=== PATIENT | male | born 1950 | race Caucasian/White ===

== ENCOUNTER 2023-12-20 16:33 | Emergency (ER) | payer MEDICARE, OTHER, SELFPAY ==
[2023-12-20 16:40] VITALS: BP 126/85
[2023-12-20 17:19] LABS: % Basophils 1.3 % (0-2); % Eosinophils 5.9 % (0-6); % Immature Granulocytes 0.2 % (0-0.5); % Lymphocytes 22.4 % (20.5-51.1); % Monocytes 9.4 % (1.7-9.3); % Neutrophils 60.8 % (42.2-75.2); Absolute Basophils 0.1 10^3/uL (0-0.2); Absolute Eosinophils 0.3 10^3/uL (0-0.7); Absolute Lymphocytes 1.2 10^3/uL (1.2-3.4); Absolute Monocytes 0.5 10^3/uL (0.1-0.6); Absolute Neutrophils 3.2 10^3/uL (1.4-6.5); Hematocrit 35.8 % (39.0-52.0); Hemoglobin 12.7 g/dL (13.0-18.0); Mean Corp Hgb Conc. 35.5 g/dL (33.0-37.0); Mean Corpuscular Hgb 31.4 pg (27.0-31.0); Mean Corpuscular Volume 88.6 fL (80.0-94.0); Mean Platelet Volume 8.7 fL (7.4-10.4); Nucleated Red Blood Cells % 0 % (-); Platelet Count 213 10^3/uL (130-400); Red Blood Cell Count 4.04 10^6/uL (4.70-6.10); Red Cell Dist. Width 12.1 % (11.5-14.5); White Blood Cell Count 5.2 10^3/uL (4.8-10.8)
[2023-12-20 17:26] LABS: ALT (SGPT) 22 U/L (0-50); AST (SGOT) 34 U/L (17-59); Albumin 4.3 g/dl (3.5-5.0); Alkaline Phosphatase 70 U/L (38-126); Blood Urea Nitrogen 13 mg/dl (9-20); Calcium 9.2 mg/dl (8.4-10.2); Carbon Dioxide 24 mmol/L (22-30); Chloride 98 mmol/L (98-107); Glucose 93 mg/dl (70-99); Potassium 4.1 mmol/L (3.5-5.1); Sodium 133 mmol/L (135-145); Total Bilirubin 1.4 mg/dl (0.2-1.3); Total Protein 7.5 g/dl (6.3-8.2); eGFR > 60.00
[2023-12-20 17:31] LABS: INR 1.14; PT 14.4 Sec (11.4-14.6)
--- NOTE | 2023-12-20 18:33 | ED.GENMED ---
History of Present Illness
General
Chief Complaint: Cough
Source: patient and family (Sister)
Exam Limitations: none
Time Seen by Provider: 12/20/23 17:59
Travel History
Have you had any contact with someone who has COVID-19?: No
Do you have any symptoms of coronavirus? Fever > 100 degrees, chills, cough, shortness of breath, sore throat, loss of taste or smell, muscle aches, or headache?: No
History of Present Illness
History of Present Illness:
This is a 73 year old male that comes in with c/o coughing up blood. Sister states that he was place on Eliquis for the atrial fib about 8 months ago. States that today she went to renew his Plavix and the pharmacy would not refill this as they
said Dr. Saha cancelled this. States that she called the nurse at the [facility] as he was coughing up blood with his mucous from his stoma. States that this has been off and on for the past 1-2 weeks. States that also when he would take his stoma out in
the [place] there would be blood there. States that this is not all the time. State that today he stopped the Plavix as no one told him to stop this before. Denies any fever, chills, chest pain, SOB, abd pain, nausea, vomiting, diarrhea, headache,
dizziness, urinary burning.
Past History
Past History
ED Past Medical History: Arrthythmia (Atrial fib), CAD, Cancer (Throat and vocal cord CA), GERD, HTN, Hypercholesterolemia, GA (X 2) and Other (Herniated disc, Pancreatitis, Glaucoma)
ED Past Surgical History: Cardiac (Stents X 2), Orthopedic (Back surgery, ) and Other (Tracheostomy, esophageal reconstruction, Vocal cord surgery, Laryngectomy, Facial reconstruction with plates, )
Social History
Tobacco: Former smoker
Alcohol: Daily (6 beers)
Personal: Single
Living: with family
Employment: Retired
Review of Systems
Review of Systems
All Other Systems: ROS reviewed and negative except as documented in HPI and ROS
Constitutional: Reports no symptoms; Denies fever or chills
EENT: Reports no symptoms
Respiratory: Reports hemoptysis (on and off)
Cardiac: Reports no symptoms; Denies chest pain
ABD/GI: Reports no symptoms; Denies abdominal pain, nausea, vomiting or diarrhea
: Reports no symptoms; Denies dysuria, frequency or urgency
Musculoskeletal: Reports no symptoms
Skin: Reports no symptoms
Neurological: Reports no symptoms; Denies dizzy or headache
Psychiatric: Reports no symptoms
Phy Exam
General Physical Exam
General Presentation: well appearing and no apparent distress
General age: appears stated age
General Skin: warm and dry
General Habitus: normal
General Mental: alert
General Hydration: appears well hydrated
ENT Exam
ENT Exam: TM's normal, pharynx normal and neck supple
Eye Exam
Eye Exam: EOMI
Cardiovascular Exam
Cardiovascular Exam: regular rate/rhythm
Pulmonary Exam
Pulmonary Exam: lungs clear, no respiratory distress, no rales, chest non tender, no crackles, no rhonchi, no wheezing and no cough
Musculoskeletal Exam
Musculoskeletal Exam: full ROM
Skin Exam
Skin Exam: normal color, warm/dry, no rash and no petechia
Psychiatric Exam
Psychiatric Exam: normal mood/affect
Course
Orders/Labs/Results
Orders:
Orders
12/20/23 16:56
Complete Blood Count/With Diff Urgent
Comprehensive Metabolic Panel Urgent
PT/INR [Prothrombin Time] Urgent
12/20/23 18:18
CR Chest - 2 Views Urgent
Comment: history of Esophageal cancer and Vocal cord CA
Reason For Exam: Coughing up blood
Abnormal Lab Results
12/20/23
16:56
RBC 4.04 L 10^6/uL
(4.70-6.10)
Hgb 12.7 L g/dL
(13.0-18.0)
Hct 35.8 L %
(39.0-52.0)
MCH 31.4 H pg
(27.0-31.0)
Monocytes % 9.4 H %
(1.7-9.3)
Sodium 133 L mmol/L
(135-145)
Total Bilirubin 1.4 H mg/dl
(0.2-1.3)
12/20/23 16:56
12/20/23 16:56
H/H slightly low naranjo compared to prior labs, Sodium slightly low. PT 14.4 with INR 1.14
Vital Signs
Initial and Last Documented VS:
Initial Vital Signs
Temp Pulse Resp BP Pulse Ox
98.2 F 85 16 126/85 98
12/20/23 16:40 12/20/23 16:40 12/20/23 16:40 12/20/23 16:40 12/20/23 16:40
Last Documented Vital Signs
Temp Pulse Resp BP Pulse Ox
98.2 F 85 16 126/85 98
12/20/23 16:40 12/20/23 16:40 12/20/23 16:40 12/20/23 16:40 12/20/23 16:40
MDM/Problems Addressed
Differential Diagnosis Includes:
Over use of Blood thinners,
MDM/Problems Addressed:
This is a 73 year old male that comes in with c/o hemoptasis. Sister states that he was taking Plavix and Eliquis as no one to told him to stop the Plavix when he was started on the Eliquis. States that when he shaves he had had a hard time
stopping the bleeding. Today they told him to stop the Plavix. Patient states that the coughing up of blood is not all the time.
Will get labs and chest X-ray.
Back into see patient and sister. Explained that his chest x-ray is normal. Will have patient follow up with the physician relations specialist but feel that since he has stopped the Plavix his bleeding will stop. Patient to return with increased bleeding or
any other concerns.
Chronic conditions affecting care: Cancer
Acute Exacerbation and/or Progression of Chronic Illness: Cancer
*Radiology
Radiology exam reviewed: radiology read reviewed (Chest-NO acute cardiopulmonary process. )
*Pulse Oximetry
Patient hypoxic: no
*EKG
Interpreted by ED Provider?: NA
Rate: EKG- N/A
*Dictaphone Technician Interpretation
Rate: Dictaphone Technician- N/A
*Critical Care Note
Total Time (30-74mins, 75-104mins- exclusive of procedures): Not Applicable
ED Attending Note
-
Portions of this chart may have been created with voice recognition software.� Occasional wrong word or��sound alike� substitutions may have occurred due to the inherent limitations of voice recognition software.
Discharge Plan
Departure
Patient Disposition: Home (Routine Discharge)
Date of Disposition: 12/20/23
Time of Disposition: 20:04
Patient with high blood pressure during this ER visit?: No
Condition: Good
Covid-19: Not Applicable
Discharge Problem:
Cough with hemoptysis
Instructions: Coughing up blood
Prescriptions:
No Action
multivitamin with folic acid [Tab-A-José Miguel] 1 TABLET tablet
1 tab PO DAILY
pantoprazole 40 MG tablet,delayed release (DR/EC)
40 mg PO DAILY Qty: 90 3RF
aspirin 81 MG tablet,chewable
81 mg PO DAILY Qty: 0 0RF
Rx Instructions:
Please note decreased dose
nitroglycerin 0.4 MG tablet, sublingual
0.4 mg sublingual [id number] PRN (Reason: chest pain) Qty: 30 2RF
atorvastatin 40 MG tablet
40 mg PO QPM Qty: 30 3RF
metoprolol succinate 25 MG tablet extended release 24 hr
25 mg PO DAILY Qty: 30 3RF
lisinopril 2.5 MG tablet
2.5 mg PO DAILY Qty: 30 3RF
ticagrelor [Brilinta] 90 MG tablet
90 mg PO BID Qty: 60 11RF
umzbcd-jintzkyb-wpdvoji 1 EACH capsule,delayed release(DR/EC)
12,000 units PO DAILY Qty: 30 0RF
Rx Instructions:
take 12,000 units with meals as directed
levothyroxine 175 MCG tablet
175 mcg PO DAILY@0700 Qty: 30 0RF
Referrals:
UNKNOWN - PT DOES,NOT KNOW [Family Provider] -
Activity Restrictions/Additional Instructions:
As discussed, your blood work shows that your Hgb is a little low. Your bleeding factor is normal. Your Chest x-ray is normal. Most likely your bleeding will stop since you have stopped the Plavix. Follow up with the family doctor or the Pulmonary
specialist. IF YOU HAVE INCREASED BLEEDING OR YOU HAVE ANY OTHER CONCERNS PLEASE RETURN TO THE EMERGENCY ROOM.
Interventions
Interventions:
*ED COVID-19 Vaccine History Last Done: 12/20/23 16:40
Discharge Date and Time
Print Language: ROMANSH
[2023-12-20 20:22] VITALS: BP 116/92
== END 2023-12-20 20:23 | disposition home or self-care (01) ==
LOC: EMR 16:33
PROVIDERS: Emergency Medicine; EMERGENCY PHYSICIAN Emergency Medicine
DX: R05.9 Cough, unspecified (principal); R04.2 Hemoptysis; Z87.891 Personal history of nicotine dependence; Z79.01 Long term (current) use of anticoagulants; Z85.21 Personal history of malignant neoplasm of larynx
CPT/HCPCS: 99284; 71046; 80053; 85025; 85610